=== PATIENT | female | born 1985 | race Caucasian/White ===

== ENCOUNTER 2016-04-06 12:58 | Emergency (ER) | payer BC ==
[2016-04-06 13:39] VITALS: BP 162/94
--- NOTE | 2016-04-06 14:51 | UC ---
Respiratory Complaint HPI - HPI Summary HPI Summary: patient complaining of 4 days of severe tiredness. she states she has a history of mono and states this is very similar. she has associated cough with mild nausea. she is around sick contacts. denies chest congestion, chest pressure or pain, sinus pain, cough with sputum production, MARTINEZ or abdominal pain. Patient encouraged to follow up with PCP for further testing regarding mono. - History of Current Complaint Chief Complaint: UCGeneralIllness Stated Complaint: FATIGUE,THROAT Hx Obtained From: Patient Hx Last Menstrual Period: 03/20/16 ?: No Onset/Duration: Gradual Onset Timing: Constant Severity Initially: Moderate Severity Currently: Moderate Pain Intensity: 2 Pain Scale Used: 0-10 Numeric Character: Cough: Nonproductive Associated Signs And Symptoms: Positive: Negative - Risk Factors Pulmonary Embolism Risk Factors: Negative Cardiac Risk Factors: Negative Pseudomonas Risk Factors: Negative Tuberculosis Risk Factors: Negative - Allergies/Home Medications Allergies/Adverse Reactions: Allergies Allergy/AdvReac Type Severity Reaction Status Date / Time No Known Allergies Allergy Verified 04/06/16 13:31 PMH/Surg Hx/FS Hx/Imm Hx Previously Healthy: Yes - Surgical History Surgical History: Yes Surgery Procedure, Year, and Place: Left ACL, 2013. PILONIDAL CYSTECTOMY. - Family History Known Family History: Positive: Hypertension, Diabetes, Respiratory Disease - asthma - Social History Occupation: Employed Full-time Lives: With Family Alcohol Use: Occasionally Substance Use Type: None Smoking Status (MU): Never Smoked Tobacco - Immunization History Most Recent Influenza Vaccination: Not the 2015/2016 Season Review of Systems Constitutional: Fatigue Skin: Negative Eyes: Negative ENT: Nasal Discharge Respiratory: Cough Cardiovascular: Negative Motor: Negative Neurovascular: Negative Neurological: Negative Psychological: Negative All Other Systems Reviewed And Are Negative: Yes Physical Exam Triage Information Reviewed: Yes Appearance: Well-Appearing, No Pain Distress, Well-Nourished Vital Signs: Initial Vital Signs Temp 99.1 F 04/06/16 13:32 Pulse 85 04/06/16 13:32 Resp 17 04/06/16 13:32 BP 162/94 04/06/16 13:32 Pulse Ox 100 04/06/16 13:32 Vital Signs Reviewed: Yes Eye Exam: Normal Eyes: Positive: Conjunctiva Clear ENT Exam: Normal ENT: Positive: Normal ENT inspection Dental Exam: Normal Neck exam: Normal Neck: Positive: Supple, Nontender, No Lymphadenopathy Respiratory Exam: Normal Respiratory: Positive: Chest non-tender, Lungs clear Cardiovascular Exam: Normal Musculoskeletal Exam: Normal Musculoskeletal: Positive: Strength Intact, ROM Intact Neurological Exam: Normal Psychological Exam: Normal Psychological: Positive: Normal Response To Family Skin Exam: Normal UC Diagnostic Evaluation - Laboratory O2 Sat by Pulse Oximetry: 100 Respiratory Course/Dx - Differential Dx/Diagnosis Differential Diagnosis/HQI/PQRI: Bronchitis, Sinusitis, Other - mononucleosis Provider Diagnoses: cough - Physician Notification/Consults Instructed by Provider To: Have Pt Call For Appt. Discharge - Discharge Plan Condition: Stable Disposition: HOME Prescriptions: guaiFENesin/CODIEN 100MG-10MG* [Robitussin AC 100Mg-10Mg*] 10 ml PO Q6H PRN # 150 udc MDD 40 PRN Reason: Cough Patient Education Materials: Mononucleosis (ED), Upper Respiratory Infection ( ED) Forms: *Work Release Referrals: Non Staff,Doctor [Primary Care Provider] - Additional Instructions: Rest. Fluids. Follow up with your PCP regarding further testing for MONO.
== END 2016-04-06 14:52 | disposition home or self-care (01) ==
LOC: UCCORT 12:58
DX: R05 Cough (principal)
CPT/HCPCS: 99212; G0463

== ENCOUNTER 2016-05-12 16:17 | Emergency (ER) | payer BC | END 2016-05-12 18:56 | disposition left against medical advice (07) | LOC: UCCORT 16:17 | DX: Z53.21 Procedure and treatment not carried out due to patient leaving prior to being seen by health care provider (principal) ==

== ENCOUNTER 2016-08-24 13:29 | Emergency (ER) | payer BC ==
[2016-08-24 13:50] VITALS: BP 134/86
--- NOTE | 2016-08-24 14:01 | UC ---
Throat Pain/Nasal [place] HPI - HPI Summary HPI Summary: sinus pain and pressure x 7 days + pnd, green nasal discharge, mild cough, no fever, no chill - History of Current Complaint Chief Complaint: UCRespiratory Stated Complaint: SINUSES Time Seen by Provider: 08/24/16 13:44 Hx Obtained From: Patient Hx Last Menstrual Period: 08/09/16 ?: No Onset/Duration: Gradual Onset, Lasting Days - 7, Still Present Severity: Moderate Cough: Nonproductive Associated Signs & Symptoms: Positive: Sinus Discomfort, Nasal Discharge. Negative: Dysphagia, FB Sensation, Drooling, Wheezing, Hoarseness, Fever, Vomiting, Rash - Allergies/Home Medications Allergies/Adverse Reactions: Allergies Allergy/AdvReac Type Severity Reaction Status Date / Time No Known Allergies Allergy Verified 08/24/16 13:48 Home Medications: Home Medications Escitalopram Oxalate [Lexapro 10 mg] 10 mg PO DAILY 08/24/16 [History Confirmed 08/24/16] LORazepam TAB(*) [Ativan 0.5 MG TAB (*)] 1 tab PO BEDTIME 08/24/16 [History Confirmed 08/24/16] PMH/Surg Hx/FS Hx/Imm Hx Previously Healthy: Yes - Surgical History Surgical History: Yes Surgery Procedure, Year, and Place: Left ACL, 2014. PILONIDAL CYSTECTOMY. - Family History Known Family History: Positive: Hypertension, Diabetes, Respiratory Disease - asthma - Social History Alcohol Use: Occasionally Substance Use Type: None Smoking Status (MU): Never Smoked Tobacco - Immunization History Most Recent Influenza Vaccination: Not the 2015/2016 Season Review of Systems Constitutional: Negative Skin: Negative Eyes: Negative ENT: Sore Throat, Ear Ache, Nasal Discharge Respiratory: Cough Cardiovascular: Negative Gastrointestinal: Negative Genitourinary: Negative All Other Systems Reviewed And Are Negative: Yes Physical Exam Triage Information Reviewed: Yes Appearance: Well-Appearing, No Pain Distress, Well-Nourished Vital Signs: Initial Vital Signs Temp 97.8 F 08/24/16 13:43 Pulse 73 08/24/16 13:43 Resp 16 08/24/16 13:43 BP 134/86 08/24/16 13:43 Pulse Ox 99 08/24/16 13:43 Vital Signs Reviewed: Yes Eyes: Positive: Conjunctiva Clear ENT: Positive: Normal ENT inspection, Hearing grossly normal, Pharynx normal, Nasal congestion, Nasal drainage, TMs normal Neck: Positive: Supple, Nontender, No Lymphadenopathy Respiratory: Positive: Chest non-tender, Lungs clear, Normal breath sounds Cardiovascular: Positive: RRR, No Murmur, Pulses Normal, Brisk Capillary Refill Abdominal Exam: Normal Skin Exam: Normal Throat Pain/Nasal Course/Dx - Differential Dx/Diagnosis Provider Diagnoses: sinusitis Discharge - Discharge Plan Condition: Stable Disposition: HOME Prescriptions: Amoxicillin/Clavulanate TAB* [Augmentin TAB 875*] 875 mg PO BID #20 tab Patient Education Materials: Sinusitis (ED) Referrals: Non Staff,Doctor [Primary Care Provider] - 7 Days
== END 2016-08-24 14:02 | disposition home or self-care (01) ==
LOC: UCCORT 13:29
DX: J32.9 Chronic sinusitis, unspecified (principal)
CPT/HCPCS: 99212; G0463